=== PATIENT | female | born 1980 | race Asian ===

== ENCOUNTER → 2017-08-15 | Outpatient (CLI) | payer BC ==
[2015-07-07 10:40] VITALS: BP 124/74
--- NOTE | 2017-08-15 14:26 | RAD ---
EXAM: Pelvic sonogram. HISTORY: Left lower quadrant bulge. TECHNIQUE: Transabdominal and transvaginal sonographic imaging of the pelvis was performed. COMPARISON: 03/24/2016. FINDINGS: The uterus measures 6.5 x 5.1 x 2.5 cm. The endometrial stripe measures 7.8 mm in thickness. The right ovary measures 5.9 x 4.1 x 3.0 cm transvaginally of the left ovary measures 3.3 x 3.6 x 2.6 cm transvaginally. There is normal blood flow within both ovaries. There is a 4.7 cm complex right ovarian cyst with internal debris. There are 1.5 cm and 1.4 cm left ovarian cysts. No solid lesion is seen. There is no pelvic free fluid. IMPRESSION: 1. 1.5 cm and 1.4 cm left ovarian cysts. 2. 4.7 cm complex right ovarian cyst with internal debris. 3. Otherwise, unremarkable pelvic sonogram. Electronically signed by: Leanna Allen MD (08/15/2017 2:23 PM) [id number]
== END | disposition home or self-care (01) ==
LOC: US 07:43
PROVIDERS: ATTEND Family Medicine
DX: N83.202 Unspecified ovarian cyst, left side (principal)
CPT/HCPCS: 76830; 76856

== ENCOUNTER → 2017-08-24 | Outpatient (CLI) | payer BC ==
[2015-07-07 10:40] VITALS: BP 124/74
--- NOTE | 2017-08-24 15:43 | RAD ---
Abdominal wall ultrasound, 08/24/2017: HISTORY: Periumbilical pain, redness, drainage The area of clinical concern was carefully scanned. There is a hypoechoic process directly beneath the umbilicus within the abdominal wall involving the subcutaneous fat. It measures approximately 1.8 x 1.1 x 0.8 cm. There is color flow within the majority of this process suggesting cellulitis versus a vascular mass. There are small peripheral nonvascular hypoechoic areas suggesting a small component of fluid. There is a suggestion of a small fluid-filled track extending to the skin. Reportedly this process has been draining. No discrete drainable abscess is seen. Electronically signed by: Teddy Farah MD (08/24/2017 3:39 PM) [facility]
== END | disposition home or self-care (01) ==
LOC: US 10:47
PROVIDERS: ATTEND Surgery
DX: R10.33 Periumbilical pain (principal)
CPT/HCPCS: 76705

== ENCOUNTER → 2017-09-27 | Outpatient (CLI) | payer BC ==
[2015-07-07 10:40] VITALS: BP 124/74
--- NOTE | 2017-09-27 08:46 | RAD ---
Pelvic ultrasound, 09/27/2017: HISTORY: Follow-up cyst Transabdominal and transvaginal scans were obtained. The uterus measures 6.8 x 5.2 x 3.3 cm. This intrauterine echo complex measures 8 mm in AP dimension in the fundal region which is within normal limits for the premenopausal state. The right ovary contains a 4.5 x 3.1 x 3.9 cm mass with faint internal echoes. No internal vascularity is seen. There is posterior acoustic enhancement. The appearance is that of a complicated cyst. No mural irregularity is seen. This structure appears the same or perhaps slightly smaller than on the 08/15/2017 exam. The left ovary is of normal size. It contains a 1.4 cm simple cyst as well as a 1.5 cm cyst with internal echoes.Similar findings were present on the previous study. No new adnexal abnormality is seen. No free fluid is evident in the pelvis. IMPRESSION: 1. Stable small left ovarian cysts. 2. Stable larger right ovarian cyst containing internal debris. 3. No new abnormality is detected. Electronically signed by: Teddy Farah MD (09/27/2017 8:42 AM) [facility]
== END | disposition home or self-care (01) ==
LOC: US 07:29
PROVIDERS: ATTEND Obstetrics & Gynecology
DX: N83.291 Other ovarian cyst, right side (principal); N83.292 Other ovarian cyst, left side
CPT/HCPCS: 76830; 76856

== ENCOUNTER → 2018-05-15 | Outpatient (CLI) | payer BC ==
[2015-07-07 10:40] VITALS: BP 124/74
[2018-05-15 15:18] LABS: BASO # 0.1 x10^3/uL (0.0-0.2); BASO % 1 % (0-3); EOS # 0.1 x10^3/uL (0.0-0.7); EOS % 1 % (0-3); HEMATOCRIT 32.5 % (36.0-47.0); LYMPH # 2.7 x10^3/uL (1.0-4.8); LYMPH % 25 % (24-48); MEAN CORPUSCULAR HEMOGLOBIN 30 pg (25-35); MEAN CORPUSCULAR HGB CONC 34 g/dL (31-37); MEAN CORPUSCULAR VOLUME 87 fL (79-100); MONO % 9 % (0-9); NEUT # 6.8 x10^3uL (1.8-7.7); NEUT % 64 % (31-73); PLATELET COUNT 513 x10^3/uL (140-400); RED BLOOD COUNT 3.74 x10^6/uL (3.50-5.40); RED CELL DISTRIBUTION WIDTH 13.6 % (11.5-14.5); WHITE BLOOD COUNT 10.6 x10^3/uL (4.0-11.0)
== END | disposition home or self-care (01) ==
LOC: LAB 14:10
PROVIDERS: ATTEND Family Medicine
DX: N92.0 Excessive and frequent menstruation with regular cycle (principal)
CPT/HCPCS: 36415; 84443; 85025

== ENCOUNTER → 2018-05-15 | Outpatient (CLI) | payer BC ==
[2015-07-07 10:40] VITALS: BP 124/74
--- NOTE | 2018-05-15 12:36 | RAD ---
Examination: Ultrasound pelvis HISTORY: History of menorrhagia COMPARISON: 09/27/2017 FINDINGS: Uterus measures 7.8 x 4.8 x 3.5 cm. There is echogenicity identified in the endometrium with vascular flow within probably a endometrial polyp. The right ovary measures 3.5 x 2.7 x 2.9 cm. There is a 2.6 cm cyst identified in the right ovary. Left ovary measures 3.2 x 3.1 x 2.5 cm. Blood flow identified in the right and left ovaries. IMPRESSION: 1. Echogenicity identified in the endometrium with vascular flow likely endometrial polyp. 2. 2.6 cm cyst right ovary. Electronically signed by: Cullen Jeff MD (05/15/2018 12:32 PM) [place] [id number]
== END | disposition home or self-care (01) ==
LOC: US 09:16
PROVIDERS: ATTEND Family Medicine
DX: N83.201 Unspecified ovarian cyst, right side (principal)
CPT/HCPCS: 76830; 76856

== ENCOUNTER → 2018-05-29 | Outpatient (CLI) | payer BC ==
[2015-07-07 10:40] VITALS: BP 124/74
--- NOTE | 2018-05-29 16:56 | RAD ---
Right foot, 3 views, 05/29/2018: HISTORY: Foot pain No fracture or dislocation is identified. No significant arthritic change is seen. IMPRESSION: No significant right foot abnormality is detected. Electronically signed by: Teddy Farah MD (05/29/2018 4:53 PM) [facility] [place]
== END | disposition home or self-care (01) ==
LOC: RAD 15:33
PROVIDERS: ATTEND Family Medicine
DX: M79.671 Pain in right foot (principal)
CPT/HCPCS: 73630

== ENCOUNTER 2018-12-11 11:05 | Emergency (ER) | payer BC ==
[~2018-12-11] VITALS: Ht 152.4 cm; Wt 71.0 kg
[2018-12-11 11:16] VITALS: BP 113/73
[2018-12-11 11:46] LABS: BASO # 0.1 x10^3/uL (0.0-0.2); BASO % 1 % (0-3); EOS % 0 % (0-3); HEMATOCRIT 39.2 % (36.0-47.0); LYMPH # 2.3 x10^3/uL (1.0-4.8); LYMPH % 22 % (24-48); MEAN CORPUSCULAR HEMOGLOBIN 30 pg (25-35); MEAN CORPUSCULAR HGB CONC 33 g/dL (31-37); MEAN CORPUSCULAR VOLUME 91 fL (79-100); MONO # 0.7 x10^3/uL (0.0-1.1); MONO % 7 % (0-9); NEUT # 7.1 x10^3uL (1.8-7.7); NEUT % 70 % (31-73); PLATELET COUNT 389 x10^3/uL (140-400); RED BLOOD COUNT 4.29 x10^6/uL (3.50-5.40); RED CELL DISTRIBUTION WIDTH 13.1 % (11.5-14.5); WHITE BLOOD COUNT 10.2 x10^3/uL (4.0-11.0)
--- NOTE | 2018-12-11 12:17 | ED.ADGEN ---
Past History Past Medical History: No Pertinent History Past Surgical History: Other Alcohol Use: None Drug Use: None Adult General Chief Complaint Chief Complaint Vaginal bleeding/pain in early HPI HPI Patient is a 38-year-old G1, P0 estimated 5 week gestation female who presents with intermittent vaginal bleeding for the past 3 days. Vaginal blood is described as start his present upon wiping. Patient reports intermittent bilateral lower pelvic pain and cramping rated as mild. Patient denies nausea vomiting, sweats, flank pain. No urinary frequency urgency or dysuria. No dizziness lightheadedness, shortness breath chest pain palpitations. Patient was evaluated by her PCP 4 days ago and had outpatient lab showing with a quantitative hCG confirming . Patient was instructed to come to the emergency department today for further evaluation.[] Review of Systems Review of Systems Review symptoms as per history of present illness. All other review of symptoms negative. All other systems were reviewed and found to be within normal limits, except as documented in this note. Allergies Allergies Allergies Coded Allergies Type Severity Reaction Last Updated Verified codeine Allergy Intermediate shortness of breath 10/26/15 Yes Physical Exam Physical Exam Constitutional: Well developed, well nourished, no acute distress, non-toxic appearance. [] HENT: Normocephalic, atraumatic, bilateral external ears normal, oropharynx moist, no oral exudates, nose normal. [] Eyes: PERRLA, EOMI, conjunctiva normal, no discharge. [] Neck: Normal range of motion, no tenderness, supple, no stridor. [] Cardiovascular:Heart rate regular rhythm, no murmur [] Lungs & Thorax: Bilateral breath sounds clear to auscultation [] Abdomen: Bowel sounds normal, soft, no tenderness. [] Skin: Warm, dry, no erythema, no rash. [] Back: No tenderness. [] Extremities: No tenderness, no edema. [] Neurologic: Alert and oriented X 3, normal motor function, normal sensory function, no focal deficits noted. [] Psychologic: Affect normal, judgement normal, mood normal. [] Current Patient Data Vital Signs Vital Signs Date Time Temp Pulse Resp B/P (MAP) Pulse Ox O2 Delivery O2 Flow Rate FiO2 12/11/18 11:16 98.2 85 16 97 Room Air Lab Results Laboratory Tests Test 12/11/18 11:20 White Blood Count 10.2 x10^3/uL (4.0-11.0) Red Blood Count 4.29 x10^6/uL (3.50-5.40) Hemoglobin 13.0 g/dL (12.0-15.5) Hematocrit 39.2 % (36.0-47.0) Mean Corpuscular Volume 91 fL (79-100) Mean Corpuscular Hemoglobin 30 pg (25-35) Mean Corpuscular Hemoglobin Concent 33 g/dL (31-37) Red Cell Distribution Width 13.1 % (11.5-14.5) Platelet Count 389 x10^3/uL (140-400) Neutrophils (%) (Auto) 70 % (31-73) Lymphocytes (%) (Auto) 22 % (24-48) L Monocytes (%) (Auto) 7 % (0-9) Eosinophils (%) (Auto) 0 % (0-3) Basophils (%) (Auto) 1 % (0-3) Neutrophils # (Auto) 7.1 x10^3uL (1.8-7.7) Lymphocytes # (Auto) 2.3 x10^3/uL (1.0-4.8) Monocytes # (Auto) 0.7 x10^3/uL (0.0-1.1) Eosinophils # (Auto) 0.0 x10^3/uL (0.0-0.7) Basophils # (Auto) 0.1 x10^3/uL (0.0-0.2) EKG EKG [] Radiology/Procedures Radiology/Procedures [OB ultrasound: Approximately 7 week, 2 day IUP with embryo and heart rate of 152. No free fluid noted.] Course & Med Decision Making Course & Med Decision Making Pertinent Labs and Imaging studies reviewed. (See chart for details) [Patient with ultrasound confirmed IUP. Patient is Rh+. Patient reports only scant dark blood. No active Bleeding. Recommend watchful waiting, pelvic rest and OB follow-up as scheduled. Return precautions reviewed.] Final Impression Final Impression [#1 vaginal bleeding in early ] Dragon Disclaimer Dragon Disclaimer This electronic medical record was generated, in whole or in part, using a voice recognition dictation system. JAMEL DENNIS DO Dec 11, 2018 12:17
--- NOTE | 2018-12-11 13:04 | RAD ---
Examination: Obstetric ultrasound less than 14 weeks HISTORY: History of bleeding in early COMPARISON: None available FINDINGS: The uterus measures 9.0 x 6.4 x 4.5 cm. Intrauterine gestational sac identified. Yolk sac is identified. pole is identified with heart rate of 152 bpm. The crown-rump length measures 1.1 cm corresponding to 7 weeks and 2 days. The right ovary measures 3.6 x 2.6 x 2.5 cm. The left ovary measures 2.8 x 1.9 x 2.0 cm. Follicles identified in the right and left ovaries. IMPRESSION: 1. Single living intrauterine with heart rate of 152 bpm. Electronically signed by: Cullen Jeff MD (12/11/2018 1:01 PM) [id number]
== END 2018-12-11 12:29 | disposition home or self-care (01) ==
LOC: ER 11:05
DX: O46.91 Antepartum hemorrhage, unspecified, first trimester (principal); Z3A.01 Less than 8 weeks gestation of pregnancy; Z88.5 Allergy status to narcotic agent
CPT/HCPCS: 36415; 76801; 84702; 85025; 86900; 86901; 99285